=== PATIENT | male | born 2005 | race Two or more races ===

== ENCOUNTER 2023-02-03 17:38 | Emergency (ER) | payer OTHER ==
[~2023-02-03] VITALS: Ht 172.7 cm; Wt 79.5 kg
[2023-02-03 19:24] VITALS: TEMP 98.4
[2023-02-03 19:30] VITALS: BP 124/64; PULSE 71; RESP 19
[2023-02-03] MEDS ORDERED: DOXYCYCLINE HYCLATE 100 MG TABLET PO ONE (19:45)
[2023-02-03] MEDS ORDERED: CEPHALEXIN MONOHYDRATE 500 MG CAPSULE PO ONE (19:45)
[2023-02-03] MEDS ORDERED: POVIDONE-IODINE 10% 120 ML SOLUTION TP ONE (19:45)
[2023-02-03] MEDS ORDERED: POVIDONE-IODINE 10% 15 ML SOLUTION UD TP ONE (19:45)
== END 2023-02-03 20:19 ==
LOC: EMS 17:40
DX: T19.4XXA Foreign body in penis, initial encounter (principal); Z98.890 Other specified postprocedural states; W45.8XXA Other foreign body or object entering through skin, initial encounter; Y93.89 Activity, other specified; Y92.89 Other specified places as the place of occurrence of the external cause; Y99.8 Other external cause status
CPT/HCPCS: 10120; 99284; Z7502; Z7610